=== PATIENT | male | born 1985 | race Caucasian/White ===

== ENCOUNTER 2017-04-18 13:56 | Emergency (ER) | payer MEDICAID ==
[~2017-04-18] VITALS: Ht 182.9 cm; Wt 73.0 kg
[2017-04-18 13:58] VITALS: BP 120/84
[2017-04-18] MEDS ORDERED: KETOROLAC 30 MG/1 ML ONE (14:24)
[2017-04-18] MEDS ORDERED: KETOROLAC 30 MG/1 ML IM ONE (14:30)
== END 2017-04-18 15:24 | disposition home or self-care (01) ==
LOC: ED 15:10
DX: S80.02XA Contusion of left knee, initial encounter (principal); X58.XXXA Exposure to other specified factors, initial encounter; Y93.89 Activity, other specified; Y92.89 Other specified places as the place of occurrence of the external cause; Y99.8 Other external cause status
CPT/HCPCS: 29505; 73564; 96372; 99284; J1885

== ENCOUNTER 2017-05-24 13:15 | Emergency (ER) | payer MEDICAID ==
[~2017-05-24] VITALS: Ht 185.4 cm; Wt 71.0 kg
[2017-05-24] MEDS ORDERED: SODIUM CHLORIDE 0.9% 1,000ML IVBOLUS ONE (13:30)
[2017-05-24] MEDS ORDERED: SODIUM CHLORIDE FLUSH 10ML SYR IVF ONE (13:30)
[2017-05-24] MEDS ORDERED: LORazepam 1MG TABLET PO ONE (13:30)
[2017-05-24] MEDS ORDERED: THIAMINE 100MG TABLET PO ONE ×2 (13:30→14:30)
[2017-05-24 13:46] LABS: HEMATOCRIT 48.9 % (39.2-51.8); HEMOGLOBIN 16.8 g/dL (13.7-18.0); WHITE BLOOD COUNT 6.1 x10^3/uL (3.4-10)
[2017-05-24 13:59] LABS: BLOOD UREA NITROGEN 7 mg/dL (7-18)
[2017-05-24] MEDS ORDERED: THIAMINE 100MG TABLET ONE (14:15)
[2017-05-24] MEDS ORDERED: LORazepam 1MG TABLET ONE (14:16)
[2017-05-24 15:39] LABS: DAU SCREEN DISCLAIMER
[2017-05-24 16:22] VITALS: BP 132/84
== END 2017-05-24 16:28 | disposition home or self-care (01) ==
LOC: ED 16:22
DX: F10.229 Alcohol dependence with intoxication, unspecified (principal); F15.90 Other stimulant use, unspecified, uncomplicated
CPT/HCPCS: 36415; 80048; 80076; 80307; 82040; 83690; 85025; 93005; 96360; 99285; J7030; G0479